=== PATIENT | female | born 1950 | race Caucasian/White ===

== ENCOUNTER 2018-11-02 13:50 | Inpatient (IN) | payer OTHER ==
[2018-11-02 13:55] VITALS: BMI 34.0
--- NOTE | 2018-11-02 15:40 | HP ---
COWS - Scale Resting Pulse: 1= [place] 81-100 Sweatin= Chills/Flushing Restless Observation: 3= Extraneous Movement Pupil Size: 1= Pupils >than Normal Bone or Joint Aches: 2= Severe Diffuse Aches Runny Nose/ Eye Tearin= Runny Nose/Eyes GI Upset > 30mins: 2= Nausea/Diarrhea Tremor Observation: 2= Slight Tremor Visible Yawning Observation: 2= >3x During Session Anxiety or Irritability: 2=Irritable/Anxious Goose Flesh Skin: 0=Smooth Skin COWS Score: 18 CIWA Score - Admission Criteria [facility] Guidelines: Admission for Medically Managed Detox: Requires at least one of the followin. CIWA greater than 12 2. Seizures within the past 24 hours 3. Delirium tremens within the past 24 hours 4. Hallucinations within the past 24 hours 5. Acute intervention needed for co occurring medical disorder 6. Acute intervention needed for co occurring psychiatric disorder 7. Severe withdrawal that cannot be handled at a lower level of care (continued vomiting, continued diarrhea, abnormal vital signs) requiring intravenous medication and/or fluids 8. Admission ROS [facility] - [facility] Chief Complaint: i need help to stop using heroin,marijuana Allergies/Adverse Reactions: Allergies Allergy/AdvReac Type Severity Reaction Status Date / Time No Known Drug Allergies Allergy Verified 11/02/18 14:29 History of Present Illness: his 68 years old female with hroin,marijuana dependence,street methadone, seeking detox,withdrawal symptom, last detox 2012 [facility] history of htn,type 2 dm,back pain, hiv in 2018 no medication positive ppd anxiety,depression,insomnia nicotine dependence longest period of sobriety 25 years plan for out patient program after - Ebola screening Have you traveled outside of the country in the last 21 days: No Have you had contact with anyone from an Ebola affected area: No Have you been sick,other than usual withdrawal symptoms: No Do you have a fever: No - Review of Systems Constitutional: Malaise, Night Sweats, Changes in sleep, Weakness, Unintentional Wgt. Loss EENT: reports: Tearing, Nose Congestion Respiratory: reports: No Symptoms reported GI: reports: Diarrhea, Nausea, Vomiting, Abdominal cramping : reports: No Symptoms Reported Musculoskeletal: reports: Back Pain, Joint Pain, Muscle Pain, Joint Stiffness Integumentary: reports: Dryness Neuro: reports: Headache, Tremors Endocrine: reports: No Symptoms Reported, Other (type 2 dm) Hematology: reports: No Symptoms Reported, Other (hiv positive) Psychiatric: reports: No Sypmtoms Reported, Judgement Intact, Mood/Affect Appropiate, Orientated x3, Anxious, Depressed, other (insomnia) Patient History - Patient Medical History Hx Asthma: Yes (on albuterol inhaler) Hx Chronic Obstructive Pulmonary Disease (COPD): Yes Hx Cancer: No Hx Cardiac Disorders: No Hx Congestive Heart Failure: No Hx Hypertension: Yes (on meds) Hx Hypercholesterolemia: No Hx Pacemaker: No HX Cerebrovascular Accident: No Hx Seizures: No Hx Dementia: No Hx Diabetes: Yes Hx Gastrointestinal Disorders: No Hx Liver Disease: No Hx Genitourinary Disorders: No Hx Sexually Transmitted Disorders: Yes (syphilis, gonorhea) Hx Renal Disease (ESRD): No Hx Thyroid Disease: No Hx Human Immunodeficiency Virus (HIV): Yes (since 06/24 no med) Hx Hepatitis C: No Hx Depression: Yes Hx Suicide Attempt: No Hx Bipolar Disorder: No Hx Schizophrenia: No Other Medical History: anxiety,depression,insomnia - Patient Surgical History Past Surgical History: Yes Hx Neurologic Surgery: No Hx Cataract Extraction: Yes (09/2018) Hx Cardiac Surgery: No Hx Lung Surgery: Yes (1993 left benign ) Hx Breast Surgery: No Hx Breast Biopsy: No Hx Abdominal Surgery: No Hx Appendectomy: No Hx Cholecystectomy: No Hx Genitourinary Surgery: No Hx Section: No Hx Orthopedic Surgery: No Anesthesia Reaction: No - PPD History Previous Implant?: Yes Documented Results: Positive w/o proof Implanted On Prior [facility] Admission?: No PPD to be Administered?: No - Reproductive History Patient is a Female of Child Bearing Age (11 -55 yrs old): No Last Menstrual Period: 11/01/95 Patient : No - Smoking Cessation Smoking history: Current every day smoker Have you smoked in the past 12 months: Yes Aproximately how many cigarettes per day: 8 Cigars Per Day: 0 Hx Chewing Tobacco Use: No Initiated information on smoking cessation: Yes 'Breaking Loose' booklet given: 11/02/18 - Substance & Tx. History Hx Alcohol Use: No Hx Substance Use: Yes Substance Use Type: Heroin, Marijuana Hx Substance Use Treatment: Yes (2012) - Substances Abused Heroin Route: Inhalation Frequency: Daily Amount used: 2 bags Age of first use: 18 Date of Last Use: 11/01/18 Marijuana/Hashish Route: Smoking Frequency: 1-2 times per week Amount used: 1 blunt Age of first use: 14 Date of Last Use: 11/01/18 Non-Rx Methadone Route: Oral Frequency: 1-2 times per week Amount used: 50 mgs Age of first use: 18 Date of Last Use: 10/31/18 Family Disease History - Family Disease History Family History: Denies Admission Physical Exam [facility] - Vital Signs Vital Signs: Vital Signs - 24 hr 11/02/18 13:53 Temperature 97.7 F Pulse Rate 89 Respiratory 18 Rate Blood Pressure 159/80 - Physical General Appearance: Yes: Moderate Distress, Tremorous, Irritable, Sweating, Anxious HEENTM: Yes: Normal ENT Inspection, JOSE, Pharynx Normal Respiratory: Yes: Lungs Clear, Normal Breath Sounds, No Respiratory Distress Neck: Yes: Within Normal Limits, Supple, Trachea in good position Breast: Yes: Breast Exam Deferred Cardiology: Yes: Within Normal Limits, Regular Rhythm, Regular Rate, S1, S2 Abdominal: Yes: Within Normal Limits, Normal Bowel Sounds, Non Tender, Flat, Soft Genitourinary: Yes: Within Normal Limits Back: Yes: Muscle Spasm Musculoskeletal: Yes: Back pain, Joint Stiffness, Muscle Pain Extremities: Yes: Within Normal Limits, Normal Range of Motion, Tremors 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, Fully Oriented, Alert, Motor Strength 5/5 Integumentary: Yes: Dry Lymphatic: Yes: Within Normal Limits - Diagnostic (1) Opioid dependence with withdrawal Current Visit: Yes Status: Acute (2) Cannabis dependence Current Visit: Yes Status: Acute (3) Nicotine dependence Current Visit: Yes Status: Acute (4) HIV (human immunodeficiency virus infection) Current Visit: Yes Status: Acute (5) DM2 (diabetes mellitus, type 2) Current Visit: Yes Status: Acute (6) Anxiety and depression Current Visit: Yes Status: Acute (7) Insomnia Current Visit: Yes Status: Acute Cleared for Admission [facility] - Detox or Rehab [facility] Level of Care: Medically Managed Detox Regimen/Protocol: Methadone [facility] Breath Alcohol Content Breath Alcohol Content: 0 Urine Pregancy Test - Result Urine Test Results: Negative- NO Line Present Urine Drug Screen - Results Drug Screen Negative: No Urine Drug Screen Results: THC-Marijuana, OPI-Opiates, MTD-Methadone
[2018-11-02] MEDS ORDERED: MAG HYDROX/AL HYDROX/SIMETH 30 ML UNIT-DOSE CUP PO PRN (15:53)
[2018-11-02] MEDS ORDERED: MENTHOL/PHENOL 1 EACH UD MM PRN (15:53)
[2018-11-02] MEDS ORDERED: LOPERAMIDE HCL 2 MG CAPSULE PO PRN (15:53)
[2018-11-02] MEDS ORDERED: MAGNESIUM HYDROX 2400MG/30ML ORAL SUSPENSION 30 ML CUP PO PRN (15:53)
[2018-11-02] MEDS ORDERED: P-EPHED 60MG/TRIPROLIDI 2.5MG TABLET PO PRN (15:53)
[2018-11-02] MEDS ORDERED: MAGNESIUM CITRATE 300 ML BOTTLE PO PRN (15:53)
[2018-11-02] MEDS ORDERED: hydrOXYzine PAMOATE 25 MG CAPSULE (FP) PO PRN (15:53)
[2018-11-02] MEDS ORDERED: ACETAMINOPHEN 325 MG TABLET (FP) PO PRN (15:53)
[2018-11-02] MEDS ORDERED: METHADONE HCL 10 MG TABLET (FOR DETOX USE ONLY) PO ONE ×2 (16:45→23:00)
[2018-11-02] MEDS: NICOTINE 21 MG/24 HOURS TOPICAL PATCH TD SCH (17:27)
[2018-11-02] MEDS: diazePAM 5 MG TABLET PO PRN ×2 (17:28→22:04)
[2018-11-02] MEDS ORDERED: MELATONIN 5 MG TABLETS PO PRN (22:00)
[2018-11-02] MEDS: ATORVASTATIN CA 20 MG TABLET (FP) PO SCH (22:04)
[2018-11-02] MEDS: THIAMINE HCL 100 MG TABLET (FP) PO SCH (22:04)
[2018-11-03] MEDS: diazePAM 5 MG TABLET PO PRN ×2 (05:52→22:14)
[2018-11-03] MEDS: ALBUTEROL SO4 8 GM HFA INHALER IH PRN (09:47)
[2018-11-03] MEDS ORDERED: PATIENT'S OWN MEDICATION (NON-FORMULARY) (Lisinopril/Hydrochlorothiazide [Lisinopril-Hctz PO SCH (10:00)
[2018-11-03] MEDS ORDERED: METHADONE HCL 10 MG TABLET (FOR DETOX USE ONLY) PO ONE (10:00)
[2018-11-03] MEDS: LISINOPRIL 10 MG TABLET (FP) PO SCH (10:38)
[2018-11-03] MEDS: HYDROCHLOROTHIAZIDE 12.5 MG CAPSULE (FP) PO SCH (10:38)
[2018-11-03] MEDS: PRENATAL VITAMINS W/ FOLIC ACID TABLET (FP) PO SCH (10:38)
[2018-11-03] MEDS: amLODIPine BESYLATE 10 MG TABLET (FP) PO SCH (10:38)
[2018-11-03 10:48] LABS: HEMATOCRIT 41.2 % (32.4-45.2); HEMOGLOBIN 12.5 GM/dL (10.7-15.3); MCH 22.5 pg (25.7-33.7); MCHC 30.3 g/dl (32.0-36.0); MEAN CELL VOLUME 74.3 fl (80-96); MEAN PLT VOLUME 8.1 fl (7.5-11.1); PLATELET COUNT 298 K/MM3 (134-434); RBC 5.55 M/mm3 (3.60-5.2); RDW 16.1 % (11.6-15.6); WHITE BLOOD COUNT 6.6 K/mm3 (4.0-10.0)
[2018-11-03 11:02] LABS: ALBUMIN 3.4 g/dl (3.4-5.0); ALK PHOS 92 U/L (45-117); ANION GAP 10 MMOL/L (8-16); BILIRUBIN,TOTAL 0.3 mg/dL (0.2-1); BLOOD UREA NITROGEN 13 mg/dL (7-18); CALCIUM 8.3 mg/dL (8.5-10.1); CHLORIDE 105 mmol/L (98-107); CO2 24 mmol/L (21-32); CREATININE 0.9 mg/dL (0.55-1.3); GLUCOSE,RANDOM 173 mg/dL (74-106); POTASSIUM 4.2 mmol/L (3.5-5.1); SGOT/AST 10 U/L (15-37); SGPT/ALT 13 U/L (13-61); SODIUM 139 mmol/L (136-145); TOT PROT 6.9 g/dl (6.4-8.2)
[2018-11-03] MEDS: NICOTINE 21 MG/24 HOURS TOPICAL PATCH TD SCH (11:11)
--- NOTE | 2018-11-03 14:22 | PN ---
[facility] CIWA - CIWA Score Nausea/Vomitin-No Nausea/No Vomiting Muscle Tremors: None Anxiety: 3 Agitation: 3 Paroxysmal Sweats: 3 Orientation: 0-Oriented Tacttile Disturbances: 0-None Auditory Disturbances: 0-None Visual Disturbances: 0-None Headache: 2-Mild CIWA-Ar Total Score: 11 S Progress Note (SOAP) Subjective: PATIENT C/O ANXIETY/RESTLESSNESS, NIGHT SWEATS AND INTERRUPTED SLEEP. Objective: 11/03/18 14:21 Vital Signs Temperature 97.2 F L 11/03/18 09:23 Pulse Rate 89 11/03/18 09:23 Respiratory Rate 18 11/03/18 09:23 Blood Pressure 127/63 11/03/18 09:23 O2 Sat by Pulse Oximetry (%) Laboratory Tests 11/02/18 11/03/18 11/03/18 15:27 05:51 07:00 WBC 6.6 RBC 5.55 H Hgb 12.5 Hct 41.2 MCV 74.3 L MCH 22.5 L MCHC 30.3 L RDW 16.1 H Plt Count 298 MPV 8.1 Sodium Potassium Chloride Carbon Dioxide Anion Gap BUN Creatinine Creat Clearance w eGFR POC Glucometer 105 147 Random Glucose Calcium Total Bilirubin AST ALT Alkaline Phosphatase Total Protein Albumin RPR Titer 11/03/18 11/03/18 07:00 07:00 WBC RBC Hgb Hct MCV MCH MCHC RDW Plt Count MPV Sodium 139 Potassium 4.2 Chloride 105 Carbon Dioxide 24 Anion Gap 10 BUN 13 Creatinine 0.9 Creat Clearance w eGFR > 60 POC Glucometer Random Glucose 173 H Calcium 8.3 L Total Bilirubin 0.3 AST 10 L ALT 13 Alkaline Phosphatase 92 Total Protein 6.9 Albumin 3.4 RPR Titer Nonreactive PE: ALERT AND ORIENTED X 3 SKIN WARM AND DRY EXT FULL ROM, AMB AD [place] +RESTLESSNESS Assessment: 11/03/18 14:22 WITHDRAWAL SX Plan: CONTINUE DETOX ENCOURAGE ORAL FLUIDS CONTINUE TO MONITOR
[2018-11-03] MEDS: ATORVASTATIN CA 20 MG TABLET (FP) PO SCH (22:12)
[2018-11-03] MEDS: THIAMINE HCL 100 MG TABLET (FP) PO SCH (22:12)
[2018-11-04] MEDS: diazePAM 5 MG TABLET PO PRN ×3 (05:27→22:40)
[2018-11-04] MEDS: ALBUTEROL SO4 8 GM HFA INHALER IH PRN (09:02)
[2018-11-04] MEDS ORDERED: METHADONE HCL 5 MG TABLET (FOR DETOX USE ONLY) PO ONE (10:00)
[2018-11-04] MEDS: LISINOPRIL 10 MG TABLET (FP) PO SCH (10:27)
[2018-11-04] MEDS: HYDROCHLOROTHIAZIDE 12.5 MG CAPSULE (FP) PO SCH (10:27)
[2018-11-04] MEDS: NICOTINE 21 MG/24 HOURS TOPICAL PATCH TD SCH (10:27)
[2018-11-04] MEDS: amLODIPine BESYLATE 10 MG TABLET (FP) PO SCH (10:27)
[2018-11-04] MEDS: PRENATAL VITAMINS W/ FOLIC ACID TABLET (FP) PO SCH (10:27)
[2018-11-04] MEDS: IBUPROFEN 400 MG TABLET (FP) PO PRN ×2 (10:28→20:01)
[2018-11-04] MEDS: ANORO ELLIPTA IH SCH (11:40)
[2018-11-04] MEDS ORDERED: COLLOIDAL OATMEAL 1 BAR EACH TP PRN (12:08)
[2018-11-04] MEDS: AMMONIUM LACTATE 12% LOTION 225 GM BOTTLE TP SCH ×2 (13:49→23:34)
--- NOTE | 2018-11-04 17:32 | PN ---
[facility] COWS - Scale Resting Pulse: 0= [place] 80 or Below Sweatin= Chills/Flushing Restless Observation: 1= Difficult to Sit Still Pupil Size: 0= Normal to Room Light Bone or Joint Aches: 2= Severe Diffuse Aches Runny Nose/ Eye Tearin= Nasal Congestion GI Upset > 30mins: 0= None Tremor Observation of Outstretched Hands: 0= None Yawning Observation: 1= 1-2x During Session Anxiety or Irritability: 2=Irritable/Anxious Goose Flesh Skin: 0=Smooth Skin COWS Score: 8 [facility] Progress Note (SOAP) Subjective: Body Aches, Interrupted Sleep. Objective: PATIENT A & O X 3, OBSERVED AMBULATING ON UNIT. IN NO ACUTE DISTRESS. 11/04/18 17:31 Vital Signs Temperature 97.3 F L 11/04/18 15:09 Pulse Rate 100 H 11/04/18 15:09 Respiratory Rate 18 11/04/18 15:09 Blood Pressure 114/69 11/04/18 15:09 O2 Sat by Pulse Oximetry (%) Laboratory Tests 11/02/18 11/03/18 11/03/18 15:27 05:51 07:00 WBC 6.6 RBC 5.55 H Hgb 12.5 Hct 41.2 MCV 74.3 L MCH 22.5 L MCHC 30.3 L RDW 16.1 H Plt Count 298 MPV 8.1 Sodium Potassium Chloride Carbon Dioxide Anion Gap BUN Creatinine Creat Clearance w eGFR POC Glucometer 105 147 Random Glucose Calcium Total Bilirubin AST ALT Alkaline Phosphatase Total Protein Albumin RPR Titer 11/03/18 11/03/18 11/03/18 07:00 07:00 16:34 WBC RBC Hgb Hct MCV MCH MCHC RDW Plt Count MPV Sodium 139 Potassium 4.2 Chloride 105 Carbon Dioxide 24 Anion Gap 10 BUN 13 Creatinine 0.9 Creat Clearance w eGFR > 60 POC Glucometer 99 Random Glucose 173 H Calcium 8.3 L Total Bilirubin 0.3 AST 10 L ALT 13 Alkaline Phosphatase 92 Total Protein 6.9 Albumin 3.4 RPR Titer Nonreactive 11/04/18 05:26 WBC RBC Hgb Hct MCV MCH MCHC RDW Plt Count MPV Sodium Potassium Chloride Carbon Dioxide Anion Gap BUN Creatinine Creat Clearance w eGFR POC Glucometer 114 Random Glucose Calcium Total Bilirubin AST ALT Alkaline Phosphatase Total Protein Albumin RPR Titer LABS NOTED. Assessment: 12/29/18 17:32 WITHDRAWAL SYMPTOMS. Plan: CONTINUE DETOX. PATIENT REPORTS THAT SHE IS TOLERATING CURRENT DETOX SYMPTOMS WELL. AT PATIENT' S REQUEST, CURRENT DETOX MEDICATION REGIMEN (METHADONE) MODIFIED SO THAT PATIENT MAY BE DISCHARGED ON 11/06/2018.
[2018-11-04] MEDS: THIAMINE HCL 100 MG TABLET (FP) PO SCH (22:39)
[2018-11-04] MEDS: ATORVASTATIN CA 20 MG TABLET (FP) PO SCH (22:39)
[2018-11-05] MEDS: diazePAM 5 MG TABLET PO PRN ×2 (05:52→10:47)
[2018-11-05] MEDS: ALBUTEROL SO4 8 GM HFA INHALER IH PRN ×2 (09:10→19:32)
[2018-11-05] MEDS: IBUPROFEN 400 MG TABLET (FP) PO PRN (09:35)
[2018-11-05] MEDS ORDERED: METHADONE HCL 5 MG TABLET (FOR DETOX USE ONLY) PO ONE (10:00)
[2018-11-05] MEDS ORDERED: METHADONE HCL 10 MG TABLET (FOR DETOX USE ONLY) PO ONE (10:00)
[2018-11-05] MEDS: amLODIPine BESYLATE 10 MG TABLET (FP) PO SCH (10:47)
[2018-11-05] MEDS: NICOTINE 21 MG/24 HOURS TOPICAL PATCH TD SCH (10:47)
[2018-11-05] MEDS: ANORO ELLIPTA IH SCH (10:47)
[2018-11-05] MEDS: HYDROCHLOROTHIAZIDE 12.5 MG CAPSULE (FP) PO SCH (10:47)
[2018-11-05] MEDS: AMMONIUM LACTATE 12% LOTION 225 GM BOTTLE TP SCH ×2 (10:47→22:11)
[2018-11-05] MEDS: PRENATAL VITAMINS W/ FOLIC ACID TABLET (FP) PO SCH (10:47)
[2018-11-05] MEDS: LISINOPRIL 10 MG TABLET (FP) PO SCH (10:48)
[2018-11-05] MEDS: guaiFENesin/D-METHORPHAN HB 10 ML UNIT-DOSE CUPS PO PRN ×2 (14:52→20:58)
--- NOTE | 2018-11-05 16:55 | PN ---
S Progress Note (SOAP) Subjective: Headache, mild Objective: 11/05/18 16:53 Last Vital Signs Temp Pulse Resp BP Pulse Ox 97.3 F L 84 18 104/57 L 11/05/18 13:18 11/05/18 13:18 11/05/18 13:18 11/05/18 13:18 Laboratory Tests 11/02/18 11/03/18 11/03/18 15:27 05:51 07:00 WBC 6.6 RBC 5.55 H Hgb 12.5 Hct 41.2 MCV 74.3 L MCH 22.5 L MCHC 30.3 L RDW 16.1 H Plt Count 298 MPV 8.1 Sodium Potassium Chloride Carbon Dioxide Anion Gap BUN Creatinine Creat Clearance w eGFR POC Glucometer 105 147 Random Glucose Calcium Total Bilirubin AST ALT Alkaline Phosphatase Total Protein Albumin RPR Titer 11/03/18 11/03/18 11/03/18 07:00 07:00 16:34 WBC RBC Hgb Hct MCV MCH MCHC RDW Plt Count MPV Sodium 139 Potassium 4.2 Chloride 105 Carbon Dioxide 24 Anion Gap 10 BUN 13 Creatinine 0.9 Creat Clearance w eGFR > 60 POC Glucometer 99 Random Glucose 173 H Calcium 8.3 L Total Bilirubin 0.3 AST 10 L ALT 13 Alkaline Phosphatase 92 Total Protein 6.9 Albumin 3.4 RPR Titer Nonreactive 11/04/18 11/05/18 05:26 05:51 WBC RBC Hgb Hct MCV MCH MCHC RDW Plt Count MPV Sodium Potassium Chloride Carbon Dioxide Anion Gap BUN Creatinine Creat Clearance w eGFR POC Glucometer 114 112 Random Glucose Calcium Total Bilirubin AST ALT Alkaline Phosphatase Total Protein Albumin RPR Titer Labs reviewed Assessment: 11/05/18 16:54 Withdrawal symptoms Plan: Continue detox Encouraged PO water intake
[2018-11-05] MEDS: THIAMINE HCL 100 MG TABLET (FP) PO SCH (22:10)
[2018-11-05] MEDS: ATORVASTATIN CA 20 MG TABLET (FP) PO SCH (22:10)
[2018-11-06] MEDS: guaiFENesin/D-METHORPHAN HB 10 ML UNIT-DOSE CUPS PO PRN (05:36)
[2018-11-06] MEDS: ALBUTEROL SO4 8 GM HFA INHALER IH PRN (05:52)
[2018-11-06] MEDS ORDERED: METHADONE HCL 5 MG TABLET (FOR DETOX USE ONLY) PO ONE (06:00)
[2018-11-06 06:13] VITALS: BP 104/63; PULSE 94; TEMP 99.5
--- NOTE | 2018-11-06 08:43 | DS ---
[facility] Detox Discharge Summary Admission Date: 11/02/18 Discharge Date: 11/06/18 - History Present History: Opioid Dependence Additional Comments: 68 years old female admitted on 11/02/18 for opiate withdrawal stabilization completed detox regimen tolerated well alert no acute distress aftercare [facility] - Physical Exam Results Vital Signs: Vital Signs Temperature 99.5 F 11/06/18 06:13 Pulse Rate 94 H 11/06/18 06:13 Respiratory Rate 18 11/06/18 06:13 Blood Pressure 104/63 11/06/18 06:13 O2 Sat by Pulse Oximetry (%) Pertinent Admission Physical Exam Findings: opiate withdrawal sx Laboratory Last Values WBC 6.6 K/mm3 (4.0-10.0) 11/03/18 07:00 RBC 5.55 M/mm3 (3.60-5.2) H 11/03/18 07:00 Hgb 12.5 GM/dL (10.7-15.3) 11/03/18 07:00 Hct 41.2 % (32.4-45.2) 11/03/18 07:00 MCV 74.3 fl (80-96) L 11/03/18 07:00 MCH 22.5 pg (25.7-33.7) L 11/03/18 07:00 MCHC 30.3 g/dl (32.0-36.0) L 11/03/18 07:00 RDW 16.1 % (11.6-15.6) H 11/03/18 07:00 Plt Count 298 K/MM3 (134-434) 11/03/18 07:00 MPV 8.1 fl (7.5-11.1) 11/03/18 07:00 Sodium 139 mmol/L (136-145) 11/03/18 07:00 Potassium 4.2 mmol/L (3.5-5.1) 11/03/18 07:00 Chloride 105 mmol/L (98-107) 11/03/18 07:00 Carbon Dioxide 24 mmol/L (21-32) 11/03/18 07:00 Anion Gap 10 MMOL/L (8-16) 11/03/18 07:00 BUN 13 mg/dL (7-18) 11/03/18 07:00 Creatinine 0.9 mg/dL (0.55-1.3) 11/03/18 07:00 Creat Clearance w eGFR > 60 (>60) 11/03/18 07:00 POC Glucometer 144 UNITS (80-120) 11/06/18 05:34 Random Glucose 173 mg/dL (74-106) H 11/03/18 07:00 Calcium 8.3 mg/dL (8.5-10.1) L 11/03/18 07:00 Total Bilirubin 0.3 mg/dL (0.2-1) 11/03/18 07:00 AST 10 U/L (15-37) L 11/03/18 07:00 ALT 13 U/L (13-61) 11/03/18 07:00 Alkaline Phosphatase 92 U/L (45-117) 11/03/18 07:00 Total Protein 6.9 g/dl (6.4-8.2) 11/03/18 07:00 Albumin 3.4 g/dl (3.4-5.0) 11/03/18 07:00 RPR Titer Nonreactive (NONREACTIVE) 11/03/18 07:00 lab noted - Treatment Hospital Course: Detox Protocol Followed, Detoxed Safely, Responded well, Discharged Condition Good, Rehab Referral Accepted Patient has Accepted a Rehab Referral to: [facility] services - Medication Discharge Medications: Ambulatory Orders Aripiprazole [Abilify -] 10 mg PO DAILY 11/02/18 Asenapine [Saphris -] 5 mg SL BID 11/02/18 Lisinopril/Hydrochlorothiazide [Lisinopril-Hctz 10-12.5 mg Tab] 1 tablet PO DAILY 11/02/18 Paroxetine HCl [Paxil -] 60 mg PO DAILY 11/02/18 Umeclidinium [place] [Incruse Ellipta] 1 inh PO DAILY 11/02/18 Zolpidem Tartrate [Ambien] 10 mg PO HS 11/02/18 clonazePAM [Klonopin -] 0.5 mg PO BID 11/02/18 Albuterol Sulfate Inhaler - [Ventolin HFA Inhaler -] 2 inh PO Q4H PRN #1 inhaler 11/06/18 Amlodipine Besylate 10 mg PO DAILY #30 tablet 11/06/18 Atorvastatin Calcium [Lipitor] 20 mg PO HS #30 tablet 11/06/18 Lisinopril [Prinivil] 10 mg PO DAILY #30 tablet 11/06/18 Metformin HCl [Metformin HCl ER] 500 mg PO DAILY #30 tab.er.24h 11/06/18 - Diagnosis (1) Opioid dependence with withdrawal Status: Acute (2) Asthma Status: Chronic Qualifiers: Asthma severity: mild Asthma persistence: intermittent Asthma complication type: with status asthmaticus Qualified Code(s): J45.22 - Mild intermittent asthma with status asthmaticus (3) HIV (human immunodeficiency virus infection) Status: Chronic (4) HTN (hypertension) Status: Chronic Qualifiers: Hypertension type: essential hypertension Qualified Code(s): I10 - Essential (primary) hypertension (5) Nicotine dependence Status: Acute Qualifiers: Nicotine product type: cigarettes Substance use status: in withdrawal Qualified Code(s): F17.213 - Nicotine dependence, cigarettes, with withdrawal - AMA Did Patient Leave Against Medical Advice: No
[2018-11-06] MEDS ORDERED: METHADONE HCL 10 MG TABLET (FOR DETOX USE ONLY) PO ONE (10:00)
[2018-11-07] MEDS ORDERED: METHADONE HCL 5 MG TABLET (FOR DETOX USE ONLY) PO ONE (06:00)
== END 2018-11-06 09:38 | disposition home or self-care (01) | DRG 897 ==
LOC: YASAS 13:50 → Y3N 16:34
PROC: HZ2ZZZZ Detoxification Services for Substance Abuse Treatment (ICD-10-PCS; principal; 2018-11-02)
DX: F11.23 Opioid dependence with withdrawal (principal); F12.20 Cannabis dependence, uncomplicated; F17.213 Nicotine dependence, cigarettes, with withdrawal; F41.9 Anxiety disorder, unspecified; F32.9 Major depressive disorder, single episode, unspecified; Z21 Asymptomatic human immunodeficiency virus [HIV] infection status; I10 Essential (primary) hypertension; E11.65 Type 2 diabetes mellitus with hyperglycemia; E78.5 Hyperlipidemia, unspecified; G47.00 Insomnia, unspecified; Z87.42 Personal history of other diseases of the female genital tract
CPT/HCPCS: 36415; 71045-TC-FY; 80053; 82962; 85027; 86593

== ENCOUNTER 2019-02-01 10:55 | Inpatient (IN) | payer OTHER ==
[2019-02-01 11:46] VITALS: BMI 30.8
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
[2019-02-01] MEDS ORDERED: MAG HYDROX/AL HYDROX/SIMETH 30 ML UNIT-DOSE CUP PO PRN (15:09)
[2019-02-01] MEDS ORDERED: NICOTINE POLACRILEX 2 MG GUM BUC PRN (15:09)
[2019-02-01] MEDS ORDERED: BISMUTH SUBSALICYLATE 524 MG/30 ML UD PO PRN (15:09)
[2019-02-01] MEDS ORDERED: MAGNESIUM HYDROX 2400MG/30ML ORAL SUSPENSION 30 ML CUP PO PRN (15:09)
[2019-02-01] MEDS ORDERED: IBUPROFEN 400 MG TABLET (FP) PO PRN (15:09)
[2019-02-01] MEDS ORDERED: ACETAMINOPHEN 325 MG TABLET (FP) PO PRN ×2 (15:09)
[2019-02-01] MEDS ORDERED: MAGNESIUM CITRATE 300 ML BOTTLE PO PRN (15:09)
[2019-02-01] MEDS ORDERED: MENTHOL/PHENOL 1 EACH UD MM PRN (15:09)
[2019-02-01] MEDS ORDERED: ALBUTEROL SO4 0.083% IH SOL 2.5 MG/3 ML VIAL.NEB. NEB PRN (15:37)
[2019-02-01] MEDS ORDERED: COLLOIDAL OATMEAL 1 BAR EACH TP PRN (15:37)
[2019-02-01] MEDS: INSULIN SLIDING SCALE (NOVOLOG) 1 VIAL SQ SCH (17:51)
[2019-02-01] MEDS: cloNIDine HCL 0.1 MG TABLET PO PRN (17:51)
--- NOTE | 2019-02-01 18:27 | PN ---
[facility] Progress Note Note: Pt was admitted earlier today- did not get a STAT dose. Pt has a dose for 23: 00. Modified the methadone detox protocol and STAT dose ordered.
[2019-02-01] MEDS ORDERED: METHADONE HCL 5 MG TABLET PO ONE (18:30)
[2019-02-01] MEDS: THIAMINE HCL 100 MG TABLET (FP) PO SCH (22:17)
[2019-02-01] MEDS ORDERED: METHADONE HCL 10 MG TABLET (FOR DETOX USE ONLY) PO ONE ×2 (23:00)
[2019-02-02] MEDS: INSULIN SLIDING SCALE (NOVOLOG) 1 VIAL SQ SCH ×2 (06:48→16:42)
--- NOTE | 2019-02-02 09:31 | PN ---
[facility] COWS - Scale Resting Pulse: 0= MS 80 or Below Sweatin= Chills/Flushing Restless Observation: 3= Extraneous Movement Pupil Size: 1= Pupils >than Normal Bone or Joint Aches: 2= Severe Diffuse Aches Runny Nose/ Eye Tearin= Nasal Congestion GI Upset > 30mins: 2= Nausea/Diarrhea Tremor Observation of Outstretched Hands: 2= Slight Tremor Visible Yawning Observation: 1= 1-2x During Session Anxiety or Irritability: 2=Irritable/Anxious Goose Flesh Skin: 0=Smooth Skin COWS Score: 15 [facility] Progress Note (SOAP) Subjective: alert,irritable,anxious,interrupted sleep,pain in the body and back Objective: 02/02/19 09:29 Vital Signs Temperature 98.6 F 02/02/19 06:00 Pulse Rate 83 02/02/19 06:00 Respiratory Rate 18 02/02/19 06:30 Blood Pressure 147/90 02/02/19 06:00 O2 Sat by Pulse Oximetry (%) labs pending Assessment: 02/02/19 09:31 withdrawal symptom Plan: continue detox
[2019-02-02] MEDS ORDERED: METHADONE HCL 10 MG TABLET (FOR DETOX USE ONLY) PO ONE (10:00)
[2019-02-02] MEDS ORDERED: METHADONE HCL 5 MG TABLET (FOR DETOX USE ONLY) PO ONE (10:00)
[2019-02-02 10:30] LABS: ALBUMIN 3.4 g/dl (3.4-5.0); ALK PHOS 108 U/L (45-117); ANION GAP 8 MMOL/L (8-16); BILIRUBIN,TOTAL 0.5 mg/dL (0.2-1); BLOOD UREA NITROGEN 12 mg/dL (7-18); CALCIUM 8.7 mg/dL (8.5-10.1); CHLORIDE 102 mmol/L (98-107); CO2 30 mmol/L (21-32); CREATININE 0.8 mg/dL (0.55-1.3); GLUCOSE,RANDOM 130 mg/dL (74-106); SGOT/AST 11 U/L (15-37); SGPT/ALT 11 U/L (13-61); SODIUM 140 mmol/L (136-145); TOT PROT 7.4 g/dl (6.4-8.2)
[2019-02-02] MEDS: PRENATAL VITAMINS W/ FOLIC ACID TABLET (FP) PO SCH (10:32)
[2019-02-02 10:34] LABS: HEMATOCRIT 43.8 % (32.4-45.2); HEMOGLOBIN 13.2 GM/dL (10.7-15.3); MCH 21.9 pg (25.7-33.7); MCHC 30.1 g/dl (32.0-36.0); MEAN CELL VOLUME 72.7 fl (80-96); MEAN PLT VOLUME 8.8 fl (7.5-11.1); PLATELET COUNT 282 K/MM3 (134-434); RBC 6.03 M/mm3 (3.60-5.2); RDW 17.4 % (11.6-15.6); WHITE BLOOD COUNT 6.2 K/mm3 (4.0-10.0)
[2019-02-02] MEDS: MELATONIN 5 MG TABLETS PO PRN (22:19)
[2019-02-02] MEDS: THIAMINE HCL 100 MG TABLET (FP) PO SCH (22:19)
[2019-02-02] MEDS: cloNIDine HCL 0.1 MG TABLET PO PRN (22:21)
[2019-02-02] MEDS: clonazePAM 0.5 MG TABLET PO PRN (22:21)
[2019-02-03] MEDS: clonazePAM 0.5 MG TABLET PO PRN ×2 (07:01→19:38)
[2019-02-03] MEDS: INSULIN SLIDING SCALE (NOVOLOG) 1 VIAL SQ SCH ×2 (07:03→16:50)
[2019-02-03] MEDS ORDERED: METHADONE HCL 10 MG TABLET (FOR DETOX USE ONLY) PO ONE ×2 (10:00)
[2019-02-03] MEDS: PRENATAL VITAMINS W/ FOLIC ACID TABLET (FP) PO SCH (10:32)
--- NOTE | 2019-02-03 11:28 | PN ---
S COWS - Scale Resting Pulse: 0= MD 80 or Below Sweatin=Flushed/Facial Moisture Restless Observation: 1= Difficult to Sit Still Pupil Size: 0= Normal to Room Light Bone or Joint Aches: 1= Mild Discomfort Runny Nose/ Eye Tearin= Nasal Congestion GI Upset > 30mins: 2= Nausea/Diarrhea Tremor Observation of Outstretched Hands: 2= Slight Tremor Visible Yawning Observation: 0= None Anxiety or Irritability: 2=Irritable/Anxious Goose Flesh Skin: 0=Smooth Skin COWS Score: 11 S Progress Note (SOAP) Subjective: Tremors, sweats, generalized pain, abdominal cramps Objective: 02/03/19 11:30 Withdrawal sx Laboratory Last Values WBC 6.2 K/mm3 (4.0-10.0) 02/02/19 07:00 RBC 6.03 M/mm3 (3.60-5.2) H 02/02/19 07:00 Hgb 13.2 GM/dL (10.7-15.3) 02/02/19 07:00 Hct 43.8 % (32.4-45.2) 02/02/19 07:00 MCV 72.7 fl (80-96) L 02/02/19 07:00 MCH 21.9 pg (25.7-33.7) L 02/02/19 07:00 MCHC 30.1 g/dl (32.0-36.0) L 02/02/19 07:00 RDW 17.4 % (11.6-15.6) H 02/02/19 07:00 Plt Count 282 K/MM3 (134-434) 02/02/19 07:00 MPV 8.8 fl (7.5-11.1) 02/02/19 07:00 Sodium 140 mmol/L (136-145) 02/02/19 07:00 Potassium 4.0 mmol/L (3.5-5.1) 02/02/19 07:00 Chloride 102 mmol/L (98-107) 02/02/19 07:00 Carbon Dioxide 30 mmol/L (21-32) 02/02/19 07:00 Anion Gap 8 MMOL/L (8-16) 02/02/19 07:00 BUN 12 mg/dL (7-18) 02/02/19 07:00 Creatinine 0.8 mg/dL (0.55-1.3) 02/02/19 07:00 Creat Clearance w eGFR 71.33 (>60) 02/02/19 07:00 POC Glucometer 125 UNITS (80-120) 02/03/19 06:56 Random Glucose 130 mg/dL (74-106) H 02/02/19 07:00 Calcium 8.7 mg/dL (8.5-10.1) 02/02/19 07:00 Total Bilirubin 0.5 mg/dL (0.2-1) 02/02/19 07:00 AST 11 U/L (15-37) L 02/02/19 07:00 ALT 11 U/L (13-61) L 02/02/19 07:00 Alkaline Phosphatase 108 U/L (45-117) 02/02/19 07:00 Total Protein 7.4 g/dl (6.4-8.2) 02/02/19 07:00 Albumin 3.4 g/dl (3.4-5.0) 02/02/19 07:00 RPR Titer Nonreactive (NONREACTIVE) 02/02/19 07:00 Labs noted, no panic values Assessment: 02/03/19 11:31 Withdrawal sx Plan: Continue detox
[2019-02-03] MEDS: MELATONIN 5 MG TABLETS PO PRN (22:28)
[2019-02-03] MEDS: THIAMINE HCL 100 MG TABLET (FP) PO SCH (22:29)
[2019-02-04] MEDS: clonazePAM 0.5 MG TABLET PO PRN ×3 (05:05→22:14)
[2019-02-04] MEDS ORDERED: METHADONE HCL 5 MG TABLET (FOR DETOX USE ONLY) PO ONE (06:00)
[2019-02-04] MEDS: INSULIN SLIDING SCALE (NOVOLOG) 1 VIAL SQ SCH ×2 (07:21→17:12)
[2019-02-04] MEDS ORDERED: METHADONE HCL 10 MG TABLET (FOR DETOX USE ONLY) PO ONE (10:00)
[2019-02-04] MEDS: PRENATAL VITAMINS W/ FOLIC ACID TABLET (FP) PO SCH (10:10)
--- NOTE | 2019-02-04 11:45 | PN ---
[facility] Progress Note (SOAP) Subjective: feeling much better anxiety Objective: 02/04/19 11:44 Vital Signs Temperature 98.4 F 02/04/19 09:50 Pulse Rate 99 H 02/04/19 09:50 Respiratory Rate 18 02/04/19 09:50 Blood Pressure 121/80 02/04/19 09:50 O2 Sat by Pulse Oximetry (%) aaox3 ambulating no acute distress Assessment: 02/04/19 11:45 mild withdrawal sx Plan: continue detox increase fluids d/c in am
[2019-02-04] MEDS: THIAMINE HCL 100 MG TABLET (FP) PO SCH (22:14)
[2019-02-05] MEDS: clonazePAM 0.5 MG TABLET PO PRN (05:40)
[2019-02-05] MEDS ORDERED: METHADONE HCL 5 MG TABLET (FOR DETOX USE ONLY) PO ONE (06:00)
[2019-02-05] MEDS: INSULIN SLIDING SCALE (NOVOLOG) 1 VIAL SQ SCH (07:34)
--- NOTE | 2019-02-05 08:40 | DS ---
[facility] Detox Discharge Summary Admission Date: 02/01/19 Discharge Date: 02/05/19 - History Present History: Opioid Dependence - Physical Exam Results Vital Signs: Vital Signs Temperature 97.9 F 02/05/19 06:22 Pulse Rate 93 H 02/05/19 06:22 Respiratory Rate 20 02/05/19 06:22 Blood Pressure 143/78 02/05/19 06:22 O2 Sat by Pulse Oximetry (%) - Treatment Hospital Course: Detox Protocol Followed, Detoxed Safely, Responded well, Discharged Condition Good, Rehab Referral Accepted - Medication Discharge Medications: Ambulatory Orders Aripiprazole [Abilify -] 10 mg PO DAILY 11/02/18 Zolpidem Tartrate [Ambien] 10 mg PO HS 11/02/18 clonazePAM [Klonopin -] 0.5 mg PO BID 11/02/18 Albuterol Sulfate Inhaler - [Ventolin HFA Inhaler -] 2 inh PO Q4H PRN #1 inhaler 11/06/18 Amlodipine Besylate 10 mg PO DAILY #30 tablet 11/06/18 Atorvastatin Calcium [Lipitor] 20 mg PO HS #30 tablet 11/06/18 Lisinopril [Prinivil] 10 mg PO DAILY #30 tablet 11/06/18 Metformin HCl [Metformin HCl ER] 500 mg PO DAILY #30 tab.er.24h 11/06/18 - Diagnosis (1) Opioid dependence with withdrawal Current Visit: Yes Status: Chronic (2) Nicotine dependence Current Visit: Yes Status: Chronic Qualifiers: Nicotine product type: cigarettes Substance use status: uncomplicated Qualified Code(s): F17.210 - Nicotine dependence, cigarettes, uncomplicated (3) Anxiety and depression Current Visit: No Status: Chronic (4) Asthma Current Visit: Yes Status: Chronic Qualifiers: Asthma severity: mild Asthma persistence: intermittent Asthma complication type: with status asthmaticus Qualified Code(s): J45.22 - Mild intermittent asthma with status asthmaticus (5) Cannabis dependence Current Visit: Yes Status: Chronic (6) DM2 (diabetes mellitus, type 2) Current Visit: Yes Status: Chronic Qualifiers: 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 insulin use: without chcf use Diabetes mellitus complication status: without complication Qualified Code(s): E11.9 - Type 2 diabetes mellitus without complications (7) HIV (human immunodeficiency virus infection) Current Visit: Yes Status: Chronic Qualifiers: HIV symptom status: unspecified Qualified Code(s): B20 - Human immunodeficiency virus [HIV] disease (8) HLD (hyperlipidemia) Current Visit: Yes Status: Chronic (9) HTN (hypertension) Current Visit: Yes Status: Chronic Qualifiers: Hypertension type: essential hypertension Qualified Code(s): I10 - Essential (primary) hypertension (10) Insomnia Current Visit: No Status: Chronic Qualifiers: Insomnia type: unspecified Qualified Code(s): G47.00 - Insomnia, unspecified (11) Type 2 diabetes mellitus with hyperglycemia Current Visit: No Status: Chronic - AMA Did Patient Leave Against Medical Advice: No (referred to outpatient rehab)
[2019-02-05 08:47] VITALS: BP 145/72; PULSE 105; TEMP 96.6
== END 2019-02-05 09:15 | disposition home or self-care (01) | DRG 897 ==
LOC: YASAS 10:55 → Y6N 17:10
PROVIDERS: ADMIT Surgery; ATTEND Surgery
PROC: HZ2ZZZZ Detoxification Services for Substance Abuse Treatment (ICD-10-PCS; principal; 2019-02-01)
DX: F11.23 Opioid dependence with withdrawal (principal); F14.20 Cocaine dependence, uncomplicated; F17.210 Nicotine dependence, cigarettes, uncomplicated; F41.9 Anxiety disorder, unspecified; F32.9 Major depressive disorder, single episode, unspecified; I10 Essential (primary) hypertension; E11.65 Type 2 diabetes mellitus with hyperglycemia; Z21 Asymptomatic human immunodeficiency virus [HIV] infection status; E78.5 Hyperlipidemia, unspecified; G47.00 Insomnia, unspecified; Z79.84 Long term (current) use of oral hypoglycemic drugs
CPT/HCPCS: 36415; 80053; 82962; 85027; 86593; J0735

== ENCOUNTER 2019-04-23 11:21 | Inpatient (IN) | payer OTHER | END 2019-04-26 09:25 | disposition home or self-care (01) | LOC: YASAS 11:21 → Y6N 18:54 ==